=== PATIENT | female | born 1995 | race African-American/Black ===

== ENCOUNTER 2020-03-08 13:36 | Inpatient (IN) | payer OTHER, MEDICAID ==
[~2020-03-08] VITALS: Ht 175.3 cm; Wt 86.2 kg
[~2020-03-08 13:36] MED LIST: METHYLERGONOVINE MALEATE 0.2 MG/ML ONE
[2020-03-08 15:17] LABS: CLARITY URINE CLOUDY (CLEAR); COLOR URINE YELLOW (YELLOW); KETONES URINE 3+ (NEGATIVE); LEUKOCYTE ESTERASE URINE TRACE (NEGATIVE); NITRITE URINE NEGATIVE (NEGATIVE); OCCULT BLOOD URINE NEGATIVE (NEGATIVE); PH URINE >=9.0 (4.5-8.0); PROTEIN URINE 1+ (NEGATIVE); SPECIFIC GRAVITY URINE 1.021 (1.005-1.030)
[2020-03-08] MEDS ORDERED: CEFTRIAXONE 2 G in DEXTROSE 5% WATER 50 ML IV SCH (17:00)
[2020-03-08] MEDS ORDERED: NIFEDIPINE 10MG CAPSULE PO NR (17:46)
[2020-03-08] MEDS ORDERED: LACTATED RINGERS 1,000 ML IV SCH (19:01)
[2020-03-08] MEDS ORDERED: DEXT 5%/LACTATED RINGERS 1,000 ML IV SCH ×2 (19:01→22:42)
[2020-03-08] MEDS ORDERED: DEXT 5%/LR + PITOCIN 20UNITS/L 1,000 ML IV SCH ×2 (19:01→22:42)
[2020-03-08] MEDS ORDERED: LIDOCAINE HCL 1% 20ML VIAL (Pyxis) INJ INFIL SCH (19:15)
[2020-03-08] MEDS ORDERED: NALOXONE HCL 0.4 MG/ML 1ML VIAL IM PRN (19:15)
[2020-03-08] MEDS ORDERED: CARBOPROST TROMETHAMINE 250 MCG/ML AMPUL IM PRN (19:15)
[2020-03-08] MEDS ORDERED: METHYLERGONOVINE MALEATE 0.2 MG/ML IM PRN (19:15)
[2020-03-08 19:30] LABS: BASOPHILS % 0.4 % (0.0-2.0); EOSINOPHILS % 0.4 % (0.0-5.0); HEMATOCRIT. 27.6 % (36.0-48.0); LYMPHOCYTES % 24.1 % (20.0-50.0); MEAN CORPUSCULAR HEMOGLOBIN 23.9 pg (28.0-32.0); MEAN CORPUSCULAR VOLUME 73.1 fL (81.0-99.0); MEAN PLATELET VOLUME 9.4 fl (7.4-10.4); MONOCYTES % 8.4 % (2.0-8.0); NEUTROPHILS % 66.7 % (40.0-76.0); PLATELET 185 x1000/uL (130-400); RED BLOOD CELL COUNT 3.77 mill/uL (4.2-5.4); RED CELL DISTRIBUTION WIDTH 17.2 % (11.6-14.6)
[2020-03-08 19:34] LABS: *BARBITURATES SCREEN URINE NEGATIVE (NEGATIVE)
[2020-03-08 19:35] LABS: *AMPHETAMINES SCREEN URINE NEGATIVE (NEGATIVE); *BENZODIAZEPINES SCREEN URINE NEGATIVE (NEGATIVE); *COCAINE SCREEN URINE NEGATIVE (NEGATIVE)
[2020-03-08 19:37] LABS: CANNABINOID URINE SCREEN NEGATIVE (NEGATIVE); METHADONE URINE SCREEN NEGATIVE (NEGATIVE); OPIATES URINE SCREEN NEGATIVE (NEGATIVE); PHENCYCLIDINE URINE SCREEN NEGATIVE (NEGATIVE)
[2020-03-08 19:40] LABS: PARTIAL THROMBOPLASTIN TIME 28.5 sec (23.4-31.0); PROTHROMBIN TIME 10.3 sec (9.6-11.0)
[2020-03-08] MEDS ORDERED: CITRIC ACID/SODIUM CITRATE SOLN 30ML UDC PO NR (20:00)
[2020-03-08 20:14] LABS: HEPATITIS B SURFACE ANTIGEN NEGATIVE
[2020-03-08] MEDS ORDERED: MORPHINE SULFATE/PF 1MG/ML 10ML AMP ONE (20:16)
[2020-03-08] MEDS ORDERED: CEFAZOLIN SODIUM 1000MG/VIAL ONE (20:16)
[2020-03-08] MEDS ORDERED: GLYCOPYRROLATE 0.2 MG/ML 2ML VIAL ONE (20:16)
[2020-03-08] MEDS ORDERED: ONDANSETRON HCL 4MG/2ML INJ ONE (20:16)
[2020-03-08] MEDS ORDERED: PHENYLEPHRINE HCL 10 MG/ML 1ML (IV VIAL) IV ONE (20:16)
[2020-03-08] MEDS ORDERED: EPHEDRINE SULFATE 50MG/ML VIAL ONE (20:16)
[2020-03-08] MEDS ORDERED: FENTANYL CITRATE/PF 50MCG/ML 2ML VIAL ONE (20:16)
[2020-03-08] MEDS ORDERED: OXYTOCIN 10 UNITS/ML 1ML ONE (20:16)
[2020-03-08] MEDS ORDERED: TERBUTALINE SULFATE 1MG/ML VIAL SUBCUT NR (20:30)
[2020-03-08] MEDS ORDERED: DIPHENHYDRAMINE 50MG/ML VIAL IV PRN (20:45)
[2020-03-08] MEDS ORDERED: KETOROLAC 30MG/ML VIAL IV SCH (20:45)
[2020-03-08] MEDS ORDERED: BUTORPHANOL TARTRATE 2 MG/ML VIAL IV PRN (20:45)
[2020-03-08] MEDS ORDERED: NALOXONE HCL 0.4 MG/ML 1ML VIAL IV PRN (20:45)
[2020-03-08] MEDS ORDERED: KETOROLAC 60MG/2ML VIAL IM ONE (21:29)
[2020-03-08] MEDS ORDERED: DIPHENHYDRAMINE 50MG/ML VIAL ONE (21:29)
[2020-03-08] MEDS ORDERED: LIDOCAINE HCL/PF 1% 10 MG/ML 5ML VIAL ONE (21:52)
[2020-03-08] MEDS ORDERED: BISACODYL 10MG SUPP PR PRN (22:45)
[2020-03-08] MEDS ORDERED: LANOLIN OINT 7GM TUBE TOP PRN (22:45)
[2020-03-08] MEDS ORDERED: IBUPROFEN 400MG TABLET PO PRN (22:45)
[2020-03-08] MEDS ORDERED: HEMORRHOIDAL SUPP PR PRN (22:45)
[2020-03-08] MEDS ORDERED: HYDROCODONE/ACETAMINOPHEN 5/325MG TABLET PO PRN (22:45)
[2020-03-08] MEDS ORDERED: DIPHENHYDRAMINE 25MG CAPSULE PO PRN (22:45)
[2020-03-08] MEDS ORDERED: ONDANSETRON HCL 4MG/2ML INJ IV PRN (22:45)
[2020-03-09 00:50] VITALS: BP 140/84
[2020-03-09 04:00] VITALS: BP 132/71
[2020-03-09 06:32] LABS: BASOPHILS % 0.2 % (0.0-2.0); EOSINOPHILS % 0.4 % (0.0-5.0); HEMATOCRIT. 26.2 % (36.0-48.0); HEMOGLOBIN. 8.5 g/dL (12.0-16.0); LYMPHOCYTES % 24.4 % (20.0-50.0); MEAN CORPUSCULAR HEMOGLOBIN 23.6 pg (28.0-32.0); MEAN CORPUSCULAR VOLUME 72.4 fL (81.0-99.0); MEAN PLATELET VOLUME 9.5 fl (7.4-10.4); MONOCYTES % 8.1 % (2.0-8.0); NEUTROPHILS % 66.9 % (40.0-76.0); PLATELET 178 x1000/uL (130-400); RED BLOOD CELL COUNT 3.62 mill/uL (4.2-5.4); RED CELL DISTRIBUTION WIDTH 17.2 % (11.6-14.6)
[2020-03-09 07:30] VITALS: BP 132/60
[2020-03-09] MEDS: PRENATAL VIT/FE FUMARATE/FA TABLET PO SCH (12:19)
[2020-03-09] MEDS: SIMETHICONE 80MG TABLET CHEW PO SCH ×2 (12:19→21:08)
[2020-03-09] MEDS: FERROUS SULFATE 325MG TABLET PO SCH (12:19)
[2020-03-09] MEDS: IBUPROFEN 800MG TABLET PO PRN ×2 (12:20→17:54)
[2020-03-09 12:30] VITALS: BP 130/62
[2020-03-09 16:30] VITALS: BP 128/60
[2020-03-09 19:30] VITALS: BP 117/69
[2020-03-09] MEDS: DOCUSATE SODIUM 100MG CAPSULE PO SCH (21:08)
[2020-03-10] MEDS: IBUPROFEN 800MG TABLET PO PRN ×4 (02:46→21:43)
[2020-03-10 04:00] VITALS: BP 108/70
[2020-03-10 07:15] VITALS: BP 117/78
[2020-03-10] MEDS: FERROUS SULFATE 325MG TABLET PO SCH (08:32)
[2020-03-10] MEDS: PRENATAL VIT/FE FUMARATE/FA TABLET PO SCH (08:32)
[2020-03-10 14:00] VITALS: BP 114/72
[2020-03-10 20:00] VITALS: BP 125/86
[2020-03-10] MEDS: DOCUSATE SODIUM 100MG CAPSULE PO SCH (21:41)
[2020-03-10] MEDS: SIMETHICONE 80MG TABLET CHEW PO SCH (21:42)
[2020-03-11] MEDS: IBUPROFEN 800MG TABLET PO PRN (04:14)
[2020-03-11 05:29] VITALS: BP 119/80
[2020-03-11 07:15] VITALS: BP 116/72
[2020-03-11] MEDS: PRENATAL VIT/FE FUMARATE/FA TABLET PO SCH (07:49)
[2020-03-11] MEDS: FERROUS SULFATE 325MG TABLET PO SCH (07:49)
== END 2020-03-11 10:40 | disposition home or self-care (01) | DRG 786 ==
LOC: 8 EST LDRP 13:36 → OBSVTOIN 13:36 → INTOOBSV 13:36 → 8EST 03-09 00:55
PROVIDERS: ADMIT Obstetrics & Gynecology; ATTEND Obstetrics & Gynecology
PROC: 10D00Z1 Extraction of Products of Conception, Low, Open Approach (ICD-10-PCS; principal; 2020-03-08)
DX: O34.211 Maternal care for low transverse scar from previous cesarean delivery (principal); O75.3 Other infection during labor; Z3A.37 37 weeks gestation of pregnancy; Z37.0 Single live birth
CPT/HCPCS: 36415; 80305; 81003; 85025; 86592; 86703; 86762; 86850; 86900; 87340; 88307; C1726; G0378; J0690; J0696; J1200; J1885; J2210; J2274; J2370; J2405; J2590; J3010; J3105; J3490; J7060; J7121